=== PATIENT | female | born 1940 | race Caucasian/White ===

== ENCOUNTER → 2016-10-04 | Outpatient (CLI) | payer OTHER, MEDICARE | LOC: BMCIMAGING 15:47 | PROVIDERS: ATTEND Internal Medicine Rheumatology | DX: M25.512 Pain in left shoulder (principal); M25.511 Pain in right shoulder; M19.011 Primary osteoarthritis, right shoulder; M19.012 Primary osteoarthritis, left shoulder; R93.8 Abnormal findings on diagnostic imaging of other specified body structures ==

== ENCOUNTER → 2016-11-07 | Outpatient (CLI) | payer OTHER, MEDICARE | LOC: CIMAGING 14:18 | PROVIDERS: ATTEND Internal Medicine | DX: Z12.31 Encounter for screening mammogram for malignant neoplasm of breast (principal) | CPT/HCPCS: G0202-52 ==

== ENCOUNTER → 2017-11-21 | Outpatient (CLI) | payer OTHER, MEDICARE | LOC: BMCIMAGING 16:59 | PROVIDERS: ATTEND Internal Medicine Rheumatology | DX: R07.81 Pleurodynia (principal) ==

== ENCOUNTER → 2017-12-09 | Outpatient (CLI) | payer OTHER, MEDICARE | LOC: CIMAGING 13:48 | PROVIDERS: ATTEND Internal Medicine | DX: N64.4 Mastodynia (principal); Z85.3 Personal history of malignant neoplasm of breast; Z90.11 Acquired absence of right breast and nipple | CPT/HCPCS: 76641-PO ==

== ENCOUNTER → 2017-12-22 | Outpatient (CLI) | payer OTHER, MEDICARE | LOC: FIMAGING 15:18 | PROVIDERS: ATTEND Orthopaedic Surgery | DX: M24.852 Other specific joint derangements of left hip, not elsewhere classified (principal) ==

== ENCOUNTER → 2018-01-21 | Outpatient (CLI) | payer OTHER, MEDICARE | LOC: CLAB 14:12 | PROVIDERS: ATTEND Internal Medicine Rheumatology | DX: R07.81 Pleurodynia (principal) | CPT/HCPCS: 71046-PO ==

== ENCOUNTER → 2018-03-25 | Outpatient (CLI) | payer OTHER, MEDICARE ==
[~2018-03-25] MED LIST: GADOBUTROL 10 ML VIAL IVP ONE
== END ==
LOC: FIMAGING 12:38
PROVIDERS: ATTEND Ophthalmology
DX: H47.10 Unspecified papilledema (principal); H46.9 Unspecified optic neuritis; H47.021 Hemorrhage in optic nerve sheath, right eye
CPT/HCPCS: 70553; A9585; 82565-PO